=== PATIENT | male | born 1985 | race Caucasian/White ===

== ENCOUNTER → 2018-01-14 13:28 | Outpatient (CLI) | payer SELFPAY ==
[2018-01-14 14:25] LABS: Liquefaction Semen YES (YES); PH Semen 9 (7-8); Volume Semen 2.5 (1.0-5.0)
[2018-01-14 14:51] LABS: Sperm Motility 40% % Motile
[2018-01-14 15:28] LABS: Sperm Count 160 x10^6/mL (20-150)
[2018-01-14 16:56] LABS: Sperm Morphology 23 %ABNORM (0-30)
== END ==
PROVIDERS: Visit Provider Obstetrics & Gynecology
DX: Z31.41 Encounter for fertility testing (principal); N46.9 Male infertility, unspecified
CPT/HCPCS: 89320

== ENCOUNTER → 2025-04-06 07:32 | Outpatient (CLI) | payer OTHER, SELFPAY ==
--- NOTE | 2025-04-06 07:35 | DI.US.S_ITS ---
PROCEDURE: US ABDOMEN LIMITED INDICATIONS: INCREASED FERRITIN TECHNIQUE: Real-time focused scanning was performed of the abdomen, with image documentation. COMPARISON: None. FINDINGS: Age-appropriate lower lumbar spine degenerative changes are noted. Within the lateral/mid left liver lobe, there is a hyperechoic nodule, without increased vascularity measuring up to 1.5 cm. Potential focal fatty infiltration can be seen within the medial right liver anteriorly. No findings of gallstones or sludge are seen. The gallbladder wall is not thickened, measuring 3 mm or less. No specific pericholecystic fluid is seen. The sonographic Ji sign is negative. There is no biliary dilatation, the common bile duct measures 5 mm. No significant pancreatic abnormality is seen on these images. IMPRESSION: A likely 1.5 cm liver hemangioma can be seen on the left. On the right, there is an area of potential fatty infiltration measuring up to 3.4 cm. As a conservative measure, please consider follow-up liver protocol MRI (without and with contrast) for further evaluation. Dictated by: Sean Lee M.D. on 04/06/2025 at 14:50 Approved by: Sean Lee M.D. on 04/06/2025 at 14:51
== END ==
PROVIDERS: Referring Provider Nurse Practitioner; Visit Provider Nurse Practitioner
DX: K76.9 Liver disease, unspecified (principal); R79.89 Other specified abnormal findings of blood chemistry; M47.816 Spondylosis without myelopathy or radiculopathy, lumbar region
CPT/HCPCS: 76705